=== PATIENT | female | born 1935 | race Two or more races ===

== ENCOUNTER 2016-12-31 03:58 | Emergency (ER) | payer MEDICARE, OTHER ==
[~2016-12-31] VITALS: Ht 160 cm; Wt 57.2 kg
[~2016-12-31 03:58] MED LIST: ANAS1TAB PO; ASPI81TA31 PO; CARV25TA2 PO; DIGO125T PO; FURO-152 PO; LEVO75TA7 PO; LISI-603 PO; WARF1TAB47 PO; WARF2TAB57 PO
--- NOTE | 2016-12-31 04:05 | NUR ---
Pt to room via w/c. Pt c/o swelling and bruising to left eye and left FA s/p mech fall. Pt alert and oriented. No complaints of pain. Dr. Loomis at bedside for MSE
--- NOTE | 2016-12-31 04:28 | NUR ---
Pt to CT via [facility]
[2016-12-31 04:56] LABS: BASOPHILS % (AUTO) 0.4 % (0.0-2.0); EOSINOPHILS # (AUTO) 0.4 K/uL (0.0-0.7); EOSINOPHILS % (AUTO) 4.6 % (0.0-7.0); HEMOGLOBIN 10.5 G/DL (12.0-16.0); LYMPHOCYTES # (AUTO) 1.6 K/UL (0.8-4.8); MEAN CORPUSCULAR HEMOGLOBIN 22.8 UUG (27.0-31.0); MEAN CORPUSCULAR HGB CONC 32 g/dL (32.0-37.0); MEAN CORPUSCULAR VOLUME 71.5 FL (81.0-99.0); MONOCYTES # (AUTO) 0.6 K/UL (0.1-1.30); MONOCYTES % (AUTO) 7.1 % (0.0-11.0); NEUTROPHILS # (AUTO) 5.5 K/UL (1.8-8.9); NEUTROPHILS % (AUTO) 67.9 % (38.5-71.5); PLATELET COUNT (AUTO) 154 K/UL (150-450); RED BLOOD CELL COUNT(AUTO) 4.61 MIL/UL (4.2-5.4); WHITE BLOOD COUNT (AUTO) 8.1 K/UL (4.0-11.2)
[2016-12-31 04:59] LABS: ALANINE AMINOTRANSFERASE 21 U/L (14-59); ALKALINE PHOSPHATASE 73 U/L (50-136); ASPARTATE AMINOTRANSFERASE 18 U/L (15-37); BILIRUBIN,DIRECT 0.1 mg/dL (0.0-0.2); BILIRUBIN,TOTAL 0.4 mg/dL (0.2-1.0); CARBON DIOXIDE 31 mmol/L (21-32); CHLORIDE 105 mmol/L (98-107); CREATININE 1.7 mg/dL (0.6-1.3); GLUCOSE 143 mg/dL (74-106); TOTAL PROTEIN, SERUM 7.4 g/dL (6.4-8.2); UREA NITROGEN, BLOOD 38 mg/dL (7-18)
--- NOTE | 2016-12-31 05:01 | NUR ---
Pt returned from CT via [facility]
[2016-12-31] MEDS ORDERED: PENICILLIN G BENZATHINE 2.4 MMU/4 ML DISP.SYRIN IM ONE ×2 (05:30→06:04)
--- NOTE | 2016-12-31 06:30 | NUR ---
Pt ambulated to br with 1 person assist and returned to bed. Pt now resting in position of comfort for self. No complaints at this time. Cont waiting for CT results. Family at bedside.
--- NOTE | 2016-12-31 07:16 | NUR ---
Report given to ANGUS Starkey. I relinquish care of pt at this time.
--- NOTE | 2016-12-31 08:48 | NUR ---
pt was d/c to home. d/c instructions given to the pt by dr stratton. no s/s of distress at this time.
[2016-12-31 08:49] VITALS: BP 129/81
== END 2016-12-31 08:52 | disposition home or self-care (01) ==
LOC: ER 04:01
DX: S46.912A Strain of unspecified muscle, fascia and tendon at shoulder and upper arm level, left arm, initial encounter (principal); S40.022A Contusion of left upper arm, initial encounter; S00.03XA Contusion of scalp, initial encounter; T45.515A Adverse effect of anticoagulants, initial encounter; I69.354 Hemiplegia and hemiparesis following cerebral infarction affecting left non-dominant side; D50.9 Iron deficiency anemia, unspecified; G40.909 Epilepsy, unspecified, not intractable, without status epilepticus; I10 Essential (primary) hypertension; I25.10 Atherosclerotic heart disease of native coronary artery without angina pectoris; E03.9 Hypothyroidism, unspecified; F32.9 Major depressive disorder, single episode, unspecified; E11.9 Type 2 diabetes mellitus without complications; Z79.01 Long term (current) use of anticoagulants; Z79.82 Long term (current) use of aspirin; Z85.3 Personal history of malignant neoplasm of breast; Z95.0 Presence of cardiac pacemaker; Z95.2 Presence of prosthetic heart valve; Z98.890 Other specified postprocedural states; Z95.1 Presence of aortocoronary bypass graft; Z88.1 Allergy status to other antibiotic agents; Z90.12 Acquired absence of left breast and nipple; W18.30XA Fall on same level, unspecified, initial encounter; Y93.89 Activity, other specified; Y92.89 Other specified places as the place of occurrence of the external cause; Y99.8 Other external cause status
CPT/HCPCS: 36415; 70450; 70486; 71010; 72170; 73090; 80048; 80076; 85025; 85730; 93005; 96372; 99285; A4663

== ENCOUNTER 2017-05-06 08:48 | Inpatient (IN) | payer MEDICARE, OTHER ==
[~2017-05-06] VITALS: Ht 157.5 cm; Wt 57.2 kg
[2017-05-06] MEDS ORDERED: VITAMIN D (08:59)
[2017-05-06] MEDS ORDERED: CITROCAL (08:59)
[2017-05-06] MEDS ORDERED: LISI10TA5 PO (08:59)
[2017-05-06] MEDS ORDERED: VITAMIN B12 (08:59)
[2017-05-06] MEDS ORDERED: PANT40TA4 PO (08:59)
[2017-05-06] MEDS ORDERED: IRON (08:59)
--- NOTE | 2017-05-06 08:59 | NUR ---
PT IS IN ROOM #2A. DR ONEILL EVALUATED THE PT.
[2017-05-06] MEDS ORDERED: ACETAMINOPHEN ES 500 MG TABLET PO ONE (09:15)
[2017-05-06] MEDS ORDERED: ACETAMINOPHEN ES 500 MG TABLET ONE (09:19)
[2017-05-06 09:41] LABS: BASOPHILS % (AUTO) 0.5 % (0.0-2.0); EOSINOPHILS # (AUTO) 0.2 K/uL (0.0-0.7); EOSINOPHILS % (AUTO) 2.4 % (0.0-7.0); HEMATOCRIT 25.8 % (31.2-41.9); HEMOGLOBIN 8.3 g/dL (10.9-14.3); LYMPHOCYTES # (AUTO) 1.2 K/uL (20.0-40.0); LYMPHOCYTES % (AUTO) 14.4 % (20.5-51.5); MEAN CORPUSCULAR HEMOGLOBIN 22.9 uug (24.7-32.8); MEAN CORPUSCULAR HGB CONC 32 g/dL (32.3-35.6); MEAN CORPUSCULAR VOLUME 71.2 fL (75.5-95.3); MONOCYTES # (AUTO) 0.6 K/uL (2.0-10.0); MONOCYTES % (AUTO) 7.5 % (0.0-11.0); NEUTROPHILS # (AUTO) 6.4 K/uL (1.8-8.9); NEUTROPHILS % (AUTO) 75.2 % (38.5-71.5); RED BLOOD CELL COUNT(AUTO) 3.63 MIL/uL (3.63-4.92); WHITE BLOOD COUNT (AUTO) 8.5 K/uL (3.8-11.8)
[2017-05-06 09:43] LABS: CARBON DIOXIDE 29 mmol/L (21-32); CHLORIDE 104 mmol/L (98-107); CREATININE 1.5 mg/dL (0.6-1.3); GLUCOSE 126 mg/dL (74-106); PLATELET COUNT (AUTO) 148 K/uL (179-408); POTASSIUM 4.1 mmol/L (3.5-5.1); UREA NITROGEN, BLOOD 39 mg/dL (7-18)
[2017-05-06 09:48] LABS: ALANINE AMINOTRANSFERASE 18 U/L (14-59); ALKALINE PHOSPHATASE 65 U/L (50-136); ASPARTATE AMINOTRANSFERASE 15 U/L (15-37); BILIRUBIN,DIRECT 0.1 mg/dL (0.0-0.2); BILIRUBIN,TOTAL 0.6 mg/dL (0.2-1.0); TOTAL PROTEIN, SERUM 7.3 g/dL (6.4-8.2)
[2017-05-06 10:15] LABS: BAND % (MANUAL) 2 % (0-10); BASOPHILS % (MANUAL) 1 % (0-2); EOSINOPHILS % (MANUAL) 1 % (0-8); LYMPHOCYTES % (MANUAL) 18 % (20-40); MONOCYTES % (MANUAL) 10 % (2-10); NEUTROPHILS % (MANUAL) 68 % (42-75)
--- NOTE | 2017-05-06 11:48 | NUR ---
PT WAS TRANSFERED TO ROOM #230. REPORT WAS GIVEN TO [employer]EARCH ASSOCIATE.
--- NOTE | 2017-05-06 12:00 | NUR ---
Received patient via [facility]. No apparent s/s of immediate distress or SOB. Assessed patient and noted right hip and right thigh bruises. Also noted left sided weakness from previous stroke. No oxygen in use. Noted B/P in 141/53. Patient speaks Cambodian. by bedside. Patient was assisted to the restroom by , nursing director and myself, recommend that it was safer to use the bed dill next time.
[2017-05-06 12:23] VITALS: BP 141/83
[2017-05-06] MEDS ORDERED: FUROSEMIDE 20 MG TABLET PO SCH (13:30)
[2017-05-06] MEDS ORDERED: MORPHINE SULFATE 2 MG/1 ML DISP.SYRIN IV PRN (13:45)
[2017-05-06] MEDS ORDERED: ONDANSETRON 4 MG/2 ML VIAL IV PRN (13:45)
[2017-05-06] MEDS ORDERED: ACETAMINOPHEN 325 MG TABLET PO PRN (13:45)
[2017-05-06] MEDS ORDERED: NITROGLYCERIN 0.4 MG/TAB BOTTLE SL PRN (13:45)
[2017-05-06] MEDS: LEVOTHYROXINE SODIUM 75 MCG TABLET PO SCH (14:32)
[2017-05-06] MEDS: ANASTROZOLE 1 MG TABLET PO SCH (14:33)
[2017-05-06] MEDS: LISINOPRIL 10 MG TABLET PO SCH (14:34)
[2017-05-06] MEDS: PANTOPRAZOLE SODIUM 40 MG TABLET.DR PO SCH (14:34)
[2017-05-06] MEDS: DIGOXIN 125 MCG TABLET PO SCH (14:36)
[2017-05-06] MEDS: ASPIRIN 81 MG TAB.CHEW PO SCH (14:36)
[2017-05-06] MEDS: CARVEDILOL 25 MG TABLET PO SCH ×2 (14:36→18:14)
[2017-05-06 15:39] VITALS: BP 121/40
--- NOTE | 2017-05-06 18:38 | NUR ---
Daughter Shraddha was by bedside and helped with admission questions. Stated that she believes her mother fell because she gets up every three hours to use the restroom. Patient has been compliant with her medication, has been noted to eat her dinner on her own. Daughter stated that the patient does not want to use the bed dill and prefers a bedside commode (provided). Patient is not on hydration and no oxygen in use at this time. Bed at lowest positing for safety and call light within reach for assistance.
--- NOTE | 2017-05-06 19:07 | NUR ---
Dr aware of daughter's concern of her mother's urgency to go to the restroom every three hours
--- NOTE | 2017-05-06 19:30 | NUR ---
Received patient laying comfortably in bed. No acute distress noted. Denies pain at this time. A&O x 3, speaks very little Emirati, she is able to make her needs known. Patient is TELE Pacing at 70. Noted patient severe left sided weakness. Instructed patient to call when she needs help getting up to use the bedside commode. Room is kept clutter free. Bed is in low and locked position. Bed alarm on. Safety initiated. Call light within reach. Will continue to monitor.
[2017-05-06 20:32] VITALS: BP 135/42
[2017-05-07 00:28] VITALS: BP 118/74
[2017-05-07 04:00] VITALS: BP 122/65
--- NOTE | 2017-05-07 05:35 | NUR ---
Patient slept intermittently t/o shift. No acute distress noted. No c/o pain or SOB. Tele Pacing at 70. Assisted patient 3+ times to the restroom and placed safely back to bed. Bed alarm kept on. Room is kept clutter free. Bed is in low and locked position. BM x 1, urinating well. Vital signs stable. Safety and comfort measures maintained t/o shift. All meds given as ordered. All needs met.
[2017-05-07] MEDS: LEVOTHYROXINE SODIUM 75 MCG TABLET PO SCH (06:04)
[2017-05-07] MEDS: PANTOPRAZOLE SODIUM 40 MG TABLET.DR PO SCH (06:04)
--- NOTE | 2017-05-07 08:00 | NUR ---
AWAKE ALERT SPEAK RUMANIA COOPERATE WELL NO SOB OR PAIN RESTING QUIET ON FALL PRECAUTION BED ALARM ON AND CALL LIGHT IN REACH
[2017-05-07] MEDS: ANASTROZOLE 1 MG TABLET PO SCH (08:25)
[2017-05-07] MEDS: ASPIRIN 81 MG TAB.CHEW PO SCH (08:25)
[2017-05-07] MEDS: LISINOPRIL 10 MG TABLET PO SCH (08:26)
[2017-05-07] MEDS: DIGOXIN 125 MCG TABLET PO SCH (08:26)
[2017-05-07] MEDS: CARVEDILOL 25 MG TABLET PO SCH ×2 (08:26→16:52)
--- NOTE | 2017-05-07 09:00 | NUR ---
ASSIST UP IN CHAIR EAT BREAKFAST WELL FAMILY AT BEDSIDE
[2017-05-07 10:03] LABS: BASOPHILS % (AUTO) 0.5 % (0.0-2.0); EOSINOPHILS # (AUTO) 0.3 K/uL (0.0-0.7); EOSINOPHILS % (AUTO) 2.9 % (0.0-7.0); HEMATOCRIT 24.8 % (31.2-41.9); HEMOGLOBIN 8.1 g/dL (10.9-14.3); LYMPHOCYTES # (AUTO) 1.3 K/uL (20.0-40.0); LYMPHOCYTES % (AUTO) 14.7 % (20.5-51.5); MEAN CORPUSCULAR HEMOGLOBIN 23.3 uug (24.7-32.8); MEAN CORPUSCULAR HGB CONC 33 g/dL (32.3-35.6); MEAN CORPUSCULAR VOLUME 71.7 fL (75.5-95.3); MONOCYTES # (AUTO) 0.5 K/uL (2.0-10.0); MONOCYTES % (AUTO) 6.1 % (0.0-11.0); NEUTROPHILS # (AUTO) 6.7 K/uL (1.8-8.9); NEUTROPHILS % (AUTO) 75.8 % (38.5-71.5); PLATELET COUNT (AUTO) 166 K/uL (179-408); RED BLOOD CELL COUNT(AUTO) 3.46 MIL/uL (3.63-4.92); WHITE BLOOD COUNT (AUTO) 8.8 K/uL (3.8-11.8)
[2017-05-07 10:28] LABS: CARBON DIOXIDE 26 mmol/L (21-32); CHLORIDE 106 mmol/L (98-107); CHOLESTEROL 153 mg/dL (<200); CREATININE 1.6 mg/dL (0.6-1.3); GLUCOSE 206 mg/dL (74-106); HDL CHOLESTEROL 25 mg/dL (40-60); MAGNESIUM 2.2 mg/dL (1.8-2.4); PHOSPHOROUS 3.4 mg/dL (2.5-4.9); POTASSIUM 4.3 mmol/L (3.5-5.1); TRIGLYCERIDES 209 MG/DL (30-150); UREA NITROGEN, BLOOD 38 mg/dL (7-18)
--- NOTE | 2017-05-07 11:00 | NUR ---
DR REYES SEEN PATIENT AND LAB RESULT THIS AM URINE SPECIMEN SENT TO LAB ORDER AND TECH OF [facility] [employer] CAME AND CHECK STATE IT WAS OK AND ALREADY PHONE TO [employer] ASSEMBLER
[2017-05-07 11:56] VITALS: BP 114/40
[2017-05-07 13:51] LABS: BAND % (MANUAL) 2 % (0-10); LYMPHOCYTES % (MANUAL) 12 % (20-40); MONOCYTES % (MANUAL) 4 % (2-10); NEUTROPHILS % (MANUAL) 82 % (42-75)
[2017-05-07 14:34] LABS: *BILIRUBIN,URIN NEGATIVE (NEGATIVE); *BLOOD, URINE 2+ (NEGATIVE); *CLARITY,URINE SLIGHTLY CLOUDY (CLEAR); *COLOR,URINE YELLOW (YELLOW); *KETONES,URINE NEGATIVE (NEGATIVE); *PROTEIN,URINE 1+ (NEGATIVE); *UROBILINOGEN,URINE 0.2 E.U./dl (NORMAL); LEUKOCYTE ESTERASE ,URINE 2+ (NEGATIVE); NITRITE, URINE NEGATIVE (NEGATIVE); PH,URINE 5.5 (5.0-8.0); UGLUCOSE NEGATIVE (NEGATIVE)
[2017-05-07 14:50] LABS: WBC,URINE 20-50 /HPF (0-3)
[2017-05-07 14:51] LABS: BACTERIA,URINE MODERATE /HPF (NONE SEEN); SQUAMOUS EPITHELIAL CELL,UR FEW /HPF (NONE SEEN)
[2017-05-07 15:18] VITALS: BP 116/40
[2017-05-07 16:15] LABS: *CREATININE,URINE 120.4 mg/dL (30-125); *URINE TOTAL PROTEIN RANDOM 29.7 mg/dL (<150/24HR)
--- NOTE | 2017-05-07 17:30 | NUR ---
RETAIL GIFT CARD MERCHANDISING YOJANA BERNAL WAS INFORM OF UA RESULT THIS AFTERNOON STATE WILL ORDER MEDICATION FOR HER
--- NOTE | 2017-05-07 18:00 | NUR ---
STABLE CONDITION PAIN UNDER CONTROL SAFETY MEASURE PROVIDED CALL HERNANDEZ IN REACH AND BED ALARM ON
[2017-05-07 20:00] VITALS: BP 107/38
[2017-05-07] MEDS ORDERED: LEVOFLOXACIN 250MG /D5W 250 MG in PREMIXED 1 EACH IV SCH (21:45)
[2017-05-07] MEDS ORDERED: LEVOFLOXACIN 250MG /D5W 50 ML IV ONE (22:22)
[2017-05-08 00:03] VITALS: BP 123/31
[2017-05-08 04:00] VITALS: BP 121/38
[2017-05-08] MEDS: PANTOPRAZOLE SODIUM 40 MG TABLET.DR PO SCH (06:24)
[2017-05-08] MEDS: LEVOTHYROXINE SODIUM 75 MCG TABLET PO SCH (06:25)
--- NOTE | 2017-05-08 06:29 | NUR ---
SLEPT COMFORTABLY THROUGH THE NIGHT. ASSISTED TO BEDSIDE COMMODE X4. NO C/O CHEST PAIN. TOLERATED IV LEVAQUIN, NO ADVERSE EFFECTS NOTED. TELE IS V-PACED AT 60. NO BOWEL MOVEMENT LAST NIGHT.
[2017-05-08 06:30] LABS: ALANINE AMINOTRANSFERASE 13 U/L (14-59); ALKALINE PHOSPHATASE 62 U/L (50-136); ASPARTATE AMINOTRANSFERASE 13 U/L (15-37); BILIRUBIN,TOTAL 0.8 mg/dL (0.2-1.0); CARBON DIOXIDE 29 mmol/L (21-32); CHLORIDE 105 mmol/L (98-107); CREATININE 1.5 mg/dL (0.6-1.3); GLUCOSE 132 mg/dL (74-106); MAGNESIUM 2.3 mg/dL (1.8-2.4); PHOSPHOROUS 3.1 mg/dL (2.5-4.9); POTASSIUM 4.4 mmol/L (3.5-5.1); TOTAL PROTEIN, SERUM 6.9 g/dL (6.4-8.2); UREA NITROGEN, BLOOD 37 mg/dL (7-18)
[2017-05-08 06:59] LABS: BASOPHILS # (AUTO) 0.1 K/uL (0.0-8.0); BASOPHILS % (AUTO) 0.8 % (0.0-2.0); EOSINOPHILS # (AUTO) 0.2 K/uL (0.0-0.7); EOSINOPHILS % (AUTO) 2.9 % (0.0-7.0); HEMOGLOBIN 7.7 g/dL (10.9-14.3); LYMPHOCYTES # (AUTO) 0.8 K/uL (20.0-40.0); LYMPHOCYTES % (AUTO) 12.1 % (20.5-51.5); MEAN CORPUSCULAR HEMOGLOBIN 23.3 uug (24.7-32.8); MEAN CORPUSCULAR HGB CONC 32 g/dL (32.3-35.6); MEAN CORPUSCULAR VOLUME 72.1 fL (75.5-95.3); MONOCYTES # (AUTO) 0.5 K/uL (2.0-10.0); MONOCYTES % (AUTO) 7.4 % (0.0-11.0); NEUTROPHILS # (AUTO) 5.1 K/uL (1.8-8.9); NEUTROPHILS % (AUTO) 76.8 % (38.5-71.5); PLATELET COUNT (AUTO) 144 K/uL (179-408); RED BLOOD CELL COUNT(AUTO) 3.32 MIL/uL (3.63-4.92); WHITE BLOOD COUNT (AUTO) 6.7 K/uL (3.8-11.8)
[2017-05-08 07:52] LABS: BAND % (MANUAL) 2 % (0-10); BASOPHILS % (MANUAL) 2 % (0-2); EOSINOPHILS % (MANUAL) 2 % (0-8); LYMPHOCYTES % (MANUAL) 13 % (20-40); MONOCYTES % (MANUAL) 9 % (2-10); NEUTROPHILS % (MANUAL) 72 % (42-75)
--- NOTE | 2017-05-08 08:00 | NUR ---
AWAKE COOPERATE WELL NO SOB OR PAIN ASSIST UP IN CHAIR AND EAT BREAKFAST WELL FAMILY AT BEDSIDE ON FALL PRECAUTION CALL LIGHT IN REACH
[2017-05-08] MEDS: DIGOXIN 125 MCG TABLET PO SCH (08:40)
[2017-05-08] MEDS: ASPIRIN 81 MG TAB.CHEW PO SCH (08:40)
[2017-05-08] MEDS: CARVEDILOL 25 MG TABLET PO SCH (08:41)
[2017-05-08] MEDS: LISINOPRIL 10 MG TABLET PO SCH (08:41)
[2017-05-08] MEDS: ANASTROZOLE 1 MG TABLET PO SCH (08:41)
[2017-05-08] MEDS ORDERED: WARFARIN SODIUM 2 MG TABLET PO SCH (09:00)
[2017-05-08] MEDS ORDERED: WARFARIN SODIUM 1 MG TABLET PO SCH (09:00)
[2017-05-08 11:14] VITALS: BP 121/40
--- NOTE | 2017-05-08 14:30 | NUR ---
D/C INSTRUCTION REGARDING F/U WITH PMD AND DR TIAN IN 1 WEEK CALL FOR APPIONTMENT AND CONTINUE HOME MEDICINE ORDER STOP COUMADIN FOR [address] TIAN AND HAVE YOUR PHAMACY CALL DR MCGEE FOR ANTIBIOTICS LEVAQUINE 500 MG DAILY X5 DAY MORE ,VERBALIZES UNDERSTAND HL DISCONTINUE PRIOR D/C HOME TODAY
--- NOTE | 2017-05-08 15:00 | NUR ---
D/C HOME WITH HER BELONGING CONDITION STABLE NO PAIN ACCOMPANIES WITH
[2017-07-25] MEDS ORDERED: WARF-68 PO ×2 (14:59)
[2017-07-25] MEDS ORDERED: FERR325T22 PO (14:59)
[2017-07-25] MEDS ORDERED: CYAN10009 PO (14:59)
[2017-07-25] MEDS ORDERED: CALC-36 PO (14:59)
[2017-07-25] MEDS ORDERED: LEVO250T2 PO (14:59)
== END 2017-05-08 14:50 | disposition home or self-care (01) | DRG 280 ==
LOC: ER 08:48 → TELE 11:44
PROVIDERS: ADMIT Internal Medicine; ATTEND Internal Medicine
DX: I21.A1 Myocardial infarction type 2 (principal); N17.0 Acute kidney failure with tubular necrosis; I27.20 Pulmonary hypertension, unspecified; E11.22 Type 2 diabetes mellitus with diabetic chronic kidney disease; D69.6 Thrombocytopenia, unspecified; I13.0 Hypertensive heart and chronic kidney disease with heart failure and stage 1 through stage 4 chronic kidney disease, or unspecified chronic kidney disease; I50.42 Chronic combined systolic (congestive) and diastolic (congestive) heart failure; G40.909 Epilepsy, unspecified, not intractable, without status epilepticus; I48.2 Chronic atrial fibrillation; I69.354 Hemiplegia and hemiparesis following cerebral infarction affecting left non-dominant side; S70.11XA Contusion of right thigh, initial encounter; W06.XXXA Fall from bed, initial encounter; Y92.003 Bedroom of unspecified non-institutional (private) residence as the place of occurrence of the external cause; D63.8 Anemia in other chronic diseases classified elsewhere; E03.9 Hypothyroidism, unspecified; E78.5 Hyperlipidemia, unspecified; I69.398 Other sequelae of cerebral infarction; I25.10 Atherosclerotic heart disease of native coronary artery without angina pectoris; N18.9 Chronic kidney disease, unspecified; Z95.1 Presence of aortocoronary bypass graft; Z95.3 Presence of xenogenic heart valve; Z79.82 Long term (current) use of aspirin; Z79.01 Long term (current) use of anticoagulants; Z79.899 Other long term (current) drug therapy; Z85.3 Personal history of malignant neoplasm of breast; Z95.0 Presence of cardiac pacemaker; I25.5 Ischemic cardiomyopathy; Z87.01 Personal history of pneumonia (recurrent)
CPT/HCPCS: 36415; 70030-TC; 70450; 71045; 73502; 83735; 84100; 84156; 84300; 85025; 85610; 85730; 86850; 86900; 86901; 93005; 93307; A4663; A9150; J1956; J7050; J7060